=== PATIENT | female | born 1995 | race Caucasian/White ===

== ENCOUNTER 2017-08-02 11:15 | Inpatient (IN) | payer MEDICAID ==
[2017-08-02] VITALS (12 sets, daily range): BP systolic 107–127; BP diastolic 59–78; PULSE 87–119; RESP 14–20; TEMP 98–99; O2SAT 99–100
[~2017-08-02 11:15] MED LIST: DEPA500T3; TRAZ50TA4 PO; ZOLO20CO PO
[2017-08-02] MEDS ORDERED: LACTATED RINGER'S 1000 ML INJ 1,000 ML IV ONE (12:22)
--- NOTE | 2017-08-02 13:09 | HHI.HP ---
HPI Chief Complaint Scheduled Date Seen: Aug 02, 2017 Time Seen: 13:00 Travel History International Travel<30 Days: No Contact w/Intl Traveler<30Days: No Known Affected Area: No History of Present Illness HPI Patient is a 22-year-old who presents for a scheduled primary after having a fourth degree tear, with subsequent wound dehiscence and surgical revision after her first vaginal delivery. Thus, she elected for a scheduled . She denies any contractions, leakage of fluid, vaginal bleeding. She reports movement is at baseline. Review of systems is negative. History Past Medical History Narrative Medical See obstetric history. Otherwise she denies any past medical history. Obstetric History Obstetric History Patient is a 22-year-old with an EDC of 08/08/2017 who comes in for section consultation. Patient's first was complicated by a fourth degree tear with subsequent complete breakdown of her repair with inpatient management, antibiotics, and revision. Patient desires section due to chronic vaginal pain that she experienced for several years after that delivery. Patient has had no complications this . The baby was 8 lbs. 9 oz. Group B strep was recently performed by Daja Prasad. Patient had a 16 week ultrasound and a LMP that established EDC of August 08. Dr. aPrr discussed in detail the options of vaginal delivery versus primary section in this patient. Obviously she had a complication of her previous extensive pelvic and perineal trauma from vaginal that required revision of the repair as well as extended recovery period. section was recommended and after discussion of the pros and cons of versus vaginal delivery, patient was scheduled for a primary section today, August 02. Past Surgical History Narrative Surgical fourth degree tear repair with subsequent complete breakdown of her repair with inpatient management, antibiotics, and surgical revision in the OR. Family History Narrative Family History All healthy. Family History: Negative Social History Narrative Social History Patient lives at home alone, and her boyfriend visits a lot. Alcohol Use: No Tobacco Use: No Substance Abuse: No Allergies-Medications (Allergen,Severity, Reaction): Coded Allergies: No Known Allergies (Verified , 12/26/13) Home Meds Reported Medications Trazodone Hcl (Trazodone Hcl) 50 Mg Tab, 50 MG PO HS, TAB 10/05/14 Divalproex ER 500 mg (Depakote ER 500 mg) 500 Mg Mayda 10/05/14 Sertraline Hcl (Zoloft) 20 Mg/Ml Con, 20 MG PO DAILY, SOFIA 10/05/14 Review of Systems General / Constitutional: No: Fever, Chills Eyes: No: Visual changes HENT: No: Headaches Cardiovascular: No: Chest Pain or Discomfort Respiratory: No: Short of Breath Gastrointestinal: No: Nausea, Vomiting, Abdominal Pain Genitourinary: No: Dysuria Physical Exam Vital Signs Date Time Temp Pulse Resp B/P (MAP) Pulse Ox O2 Delivery O2 Flow Rate FiO2 08/02/17 12:36 93 17 127/66 (86) 08/02/17 12:36 98.0 Narrative GENERAL: Well-nourished, well-developed patient. SKIN: Warm and dry. HEAD: Normocephalic and atraumatic. EYES: No scleral icterus. No injection or drainage. ENT: No nasal drainage noted. Mucous membranes pink. Airway patent. NECK: Supple, trachea midline. No JVD. CARDIOVASCULAR: Regular rate and rhythm without murmurs, gallops, or rubs. RESPIRATORY: Breath sounds equal bilaterally. No accessory muscle use. ABDOMEN/GI: Abdomen soft, non-tender, bowel sounds present, no rebound, no guarding Gravid to 40 weeks size GENITOURINARY: Uterine Contractions: Every 3-4 minutes FHT's: Category: Category 1 Baseline: 140 Reactive: Reactive Variability: Moderate Decels: none EXTREMITIES: No cyanosis or edema. BACK: Nontender without obvious deformity. No CVA tenderness. NEUROLOGICAL: Awake and alert. Motor and sensory grossly within normal limits. Five out of 5 muscle strength in all muscle groups. Normal speech. Caprini VTE Risk Assessment Caprini VTE Risk Assessment: No/Low Risk (score <= 1) Caprini Risk Assessment Model Point Value = 1 Point Value = 2 Point Value = 3 Point Value = 5 Age 41-60 Minor surgery BMI > 25 kg/m2 Swollen legs Varicose veins or History of unexplained or recurrent spontaneous Oral contraceptives or hormone replacement Sepsis (< 1 month) Serious lung disease, including pneumonia (< 1 month) Abnormal pulmonary function Acute myocardial infarction Congestive heart failure (< 1 month) History of inflammatory bowel disease Medical patient at bed rest Age 61-74 Arthroscopic surgery Major open surgery (> 45 min) Laparoscopic surgery (> 45 min) Malignancy Confined to bed (> 72 hours) Immobilizing plaster cast Central venous access Age >= 75 History of VTE Family history of VTE Factor V Leiden Prothrombin [id number] Lupus anticoagulant Anticardiolipin antibodies Elevated serum homocysteine Heparin-induced thrombocytopenia Other congenital or acquired thrombophilia Stroke (< 1 month) Elective arthroplasty Hip, pelvis, or leg fracture Acute spinal cord injury (< 1 month) Prophylaxis Regimen Total Risk Factor Score Risk Level Prophylaxis Regimen 0-1 Low Early ambulation 2 Moderate Order ONE of the following: *Sequential Compression Device (SCD) *Heparin 5000 units SQ BID 3-4 Higher Order ONE of the following medications: *Heparin 5000 units SQ TID *Enoxaparin/Lovenox 40 mg SQ daily (WT < 150 kg, CrCl > 30 mL/min) *Enoxaparin/Lovenox 30 mg SQ daily (WT < 150 kg, CrCl > 10-29 mL/min) *Enoxaparin/Lovenox 30 mg SQ BID (WT < 150 kg, CrCl > 30 mL/min) AND/OR *Sequential Compression Device (SCD) 5 or more Highest Order ONE of the following medications: *Heparin 5000 units SQ TID (Preferred with Epidurals) *Enoxaparin/Lovenox 40 mg SQ daily (WT < 150 kg, CrCl > 30 mL/min) *Enoxaparin/Lovenox 30 mg SQ daily (WT < 150 kg, CrCl > 10-29 mL/min) *Enoxaparin/Lovenox 30 mg SQ BID (WT < 150 kg, CrCl > 30 mL/min) AND *Sequential Compression Device (SCD) Data Data Vital Signs Reviewed: Yes Orders Orders Admit To Inpatient (08/02/17 ) Code Status (08/02/17 12:22) Vital Signs (Adult) .ON ADMISSION (08/02/17 12:22) Activity Oob Ad Albina (08/02/17 12:22) Heart (08/02/17 12:22) Urinary Catheter Management MILLY.Q8H (08/02/17 12:22) ^ Preps (08/02/17 12:22) Scd / Luke / Foot Pump MILLY.QSHIFT (08/02/17 12:22) ^ Ultrasound For Locatio (08/02/17 12:22) Diet Npo (08/02/17 Lunch) Lactated Ringer's 1000 Ml Inj (Lr 1000 M (08/02/17 12:22) Lactated Ringer's 1000 Ml Inj (Lr 1000 M (08/02/17 12:52) Cefazolin 2 Gm Premix (Ancef 2 Gm Premix (08/02/17 13:30) Citric Acid-Sodium Citrate Liq (Bicitra (08/02/17 14:00) Type And Screen (08/02/17 12:22) Complete Blood Count With Diff (08/02/17 12:22) Urinalysis - C+S If Indicated (08/02/17 12:22) Drug Screen, Random Urine (08/02/17 12:22) Inpatient Certification (08/02/17 ) Specimen To Be Collected PRN (08/02/17 12:22) Specimen To Be Collected PRN (08/02/17 12:22) Assessment/Plan Problem List: (1) scheduled Assessment and Plan Patient is a 22-year-old who presents for a scheduled primary after having a fourth degree tear, with subsequent wound dehiscence and surgical revision after her first vaginal delivery. Thus, she elected for a scheduled . 1. Scheduled -Admit to inpatient -Routine labs including type and screen, CBC, UDS, UA -Nothing by mouth -Ancef 2 g IV perioperatively -LR IV -Monitor vital signs -Monitor heart rate -Anticipate uncomplicated s/d/w Dr. Appiah Discharge Planning Anticipate discharge 3 days after . Artie Mantilla MD R2 Aug 02, 2017 13:09
[2017-08-02] MEDS ORDERED: ceFAZolin 2 GM PREMIX 50 ML IV SCH (13:30)
[2017-08-02] MEDS ORDERED: CITRIC ACID-SODIUM CITRATE LIQ 30 ML UDC PO SCH (14:00)
[2017-08-02 14:09] LABS: BLOOD, URINE NEG (NEG); GLUCOSE,URINE NEG (NEG); KETONE, URINE NEG (NEG); NITRITE,URINE NEG (NEG); URINE COLOR YELLOW (YELLW/STRAW)
[2017-08-02 14:40] LABS: RBC, URINE 0 /hpf (0-3); WBC, URINE 0-2 /hpf (0-5)
[2017-08-02 14:41] LABS: BACTERIA, URINE MOD /hpf; COMMENT (UR) CULTURE INDICATED; CULTURE IF INDICATED CULTURE INDICATED; SQUAMOUS EPITHELIAL CELL URINE 0-5 /hpf (0-5)
[2017-08-02 15:04] LABS: AUTOMATED NEUTROPHIL # 10.5 TH/MM3 (1.8-7.7); BASOPHIL # 0.1 TH/MM3 (0-0.2); BASOPHIL % 0.5 % (0.0-2.0); EOSINOPHIL # 0.1 TH/MM3 (0-0.4); EOSINOPHIL % 0.5 % (0.0-4.0); HEMATOCRIT 29.4 % (35.0-46.0); HEMO FLAGS DIFF FINAL; LYMPH % 14.5 % (9.0-44.0); LYMPHOCYTE # 1.9 TH/MM3 (1.0-4.8); MEAN CELL VOLUME 76.3 FL (80.0-100.0); MEAN CORPUSCULAR HEMOGLOBIN 24.3 PG (27.0-34.0); MEAN CORPUSCULAR HGB CONC 31.9 % (32.0-36.0); MONO % 6.5 % (0.0-8.0); PLATELET COUNT 293 TH/MM3 (150-450); RED BLOOD COUNT 3.85 MIL/MM3 (4.00-5.30); RED CELL DISTRIBUTION WIDTH 15.7 % (11.6-17.2); WHITE BLOOD COUNT 13.4 TH/MM3 (4.0-11.0)
[2017-08-02] MEDS ORDERED: ACETAMINOPHEN 1000 MG/100 ML 100 ML IV ONE ×2 (15:36→17:15)
[2017-08-02] MEDS ORDERED: SODIUM CHLORIDE 0.9% FLUSH 10 ML FLUSH IV FLUSH PRN (17:15)
[2017-08-02] MEDS ORDERED: SIMETHICONE 80 MG CHEWABLE TAB PO PRN (17:15)
[2017-08-02] MEDS ORDERED: ZOLPIDEM TARTRATE 5 MG TAB PO PRN (17:15)
[2017-08-02] MEDS ORDERED: KETOROLAC TROMETHAMINE 60 MG/2 ML (IM) VIAL IM PRN (17:15)
[2017-08-02] MEDS ORDERED: CLINDAMYCIN INJ 900 MG in SODIUM CHLORIDE 0.9% INJ 100 ML IV SCH ×2 (17:15→18:00)
[2017-08-02] MEDS ORDERED: ACETAMINOPHEN 325 MG TAB PO PRN (17:15)
[2017-08-02] MEDS ORDERED: ONDANSETRON HCL 4 MG/2 ML VIAL IV PUSH PRN (17:15)
[2017-08-02] MEDS ORDERED: OXYTOCIN 30 UNITS-500ML PREMIX 500 ML IV ONE (17:15)
[2017-08-02] MEDS ORDERED: oxyCODONE/ACETAMINOPHEN 5 MG/325 MG TAB PO PRN (17:15)
[2017-08-02] MEDS ORDERED: KETOROLAC TROMETHAMINE 60 MG/2 ML (IM) VIAL IM ONE (18:00)
[2017-08-02] MEDS ORDERED: OXYTOCIN 30 UNITS-500ML PREMIX 500 ML ONE (18:04)
[2017-08-02] MEDS ORDERED: EPIDURAL-DIPHENHYDRAMINE HCL 50 MG CAP PO PRN (20:00)
[2017-08-02] MEDS ORDERED: EPIDURAL-NO SYSTEMIC NARCOTICS PRN (20:00)
[2017-08-02] MEDS ORDERED: EPIDURAL-DO NOT ADMINISTER ANTICOAGULANTS PRN (20:00)
[2017-08-02] MEDS ORDERED: EPIDURAL-NALOXONE HCL 0.4 MG/ML AMP IV PUSH PRN (20:00)
[2017-08-02] MEDS ORDERED: EPIDURAL-DIPHENHYDRAMINE HCL 50 MG/ML VIAL IV PUSH PRN (20:00)
--- NOTE | 2017-08-02 21:29 | MP ---
cc: CARMELINA APPIAH MD DATE OF SURGERY 08/02/17 PREOPERATIVE DIAGNOSIS ____ Intrauterine with a history of fourth-degree repair of peritoneal laceration with wound breakdown and extensive pelvic reconstructive peritoneal surgery. POSTOPERATIVE DIAGNOSIS 1. ____ Intrauterine with a history of fourth-degree repair of peritoneal laceration with wound breakdown and extensive pelvic reconstructive peritoneal surgery. 2. Macrosomic . PROCEDURE Low transverse section. SURGEON Michael Appiah MD SUPPORT SERVICES TECH MD Annalee ANESTHESIA Spinal. PREOPERATIVE NOTE The patient is a 21-year-old white female at 39 weeks who has a history of last vaginal delivery she a fourth-degree tear that was repaired and then had a wound breakdown. She had required long-term entry into the hospital for antibiotic care and then pelvic reconstructive surgery and peritoneal reconstruction. She is opting for section versus vaginal delivery this time to avoid possibility of tearing up and injuring that same peritoneal area and we agree with that. PROCEDURE IN DETAIL Patient was taken to the operating room, placed in supine position on the operating table. After adequate spinal anesthesia was administered, she was prepped and draped for abdominal surgery. A Pfannenstiel incision was made in lower abdomen carried to fascia sharply. The fascia dissected off the rectus muscle and rectus split in midline. Peritoneal cavity entered sharply. The incision extended superiorly and inferiorly. The bladder placed in lower incision. The visceral peritoneum reflected off the lower uterine segment and placed on bladder blade. A transverse hysterotomy was made and extended bluntly bilaterally. A male infant, weight 4530 grams delivered at 16:13, Apgars 7 and 8. There were no complications with delivery. Cord blood obtained. Placenta manually extracted. The hysterotomy closed in running layer of 0 chromic followed by imbricating suture of same. The bladder reapproximated with 2-0 Vicryl running stitch. The uterus elevated and blood suctioned from cul-de-sac and gutters. The uterus placed in the peritoneal cavity. The parieto-peritoneum closed in running layer of 2-0 Vicryl. The muscle reapproximated with stick ties of chromic. The fascia closed in a running layer of 0 Vicryl. Subcutaneous tissues was reapproximated with 3-0 plain catgut in a running suture. The skin closed with 3-0 Monocryl subcuticular stitch. Pressure dressing applied. Sponge and needle count correct times two. The patient to recovery in stable condition. MD RUFINA Ayers/ /5:42 PM /8:56 PM
[2017-08-02] MEDS ORDERED: LACTATED RINGER'S 1000 ML INJ 1,000 ML IV SCH (22:08)
[2017-08-02] MEDS: LACTATED RINGER'S 1000 ML INJ 1,000 ML IV SCH (23:24)
[2017-08-03 03:00] VITALS: BP 98/64; PULSE 85; RESP 18; TEMP 97.7; O2SAT 100
[2017-08-03] MEDS ORDERED: OXYTOCIN 30 UNITS-500ML PREMIX 500 ML IV PRN (03:15)
[2017-08-03] MEDS: oxyCODONE/ACETAMINOPHEN 5 MG/325 MG TAB PO PRN ×2 (03:57→10:58)
[2017-08-03] MEDS: IBUPROFEN 600 MG TAB PO PRN ×3 (03:57→19:30)
[2017-08-03 05:23] LABS: AUTOMATED NEUTROPHIL # 13.2 TH/MM3 (1.8-7.7); BASOPHIL % 0.3 % (0.0-2.0); EOSINOPHIL % 0.1 % (0.0-4.0); HEMATOCRIT 22.7 % (35.0-46.0); HEMO FLAGS DIFF FINAL; LYMPH % 8.5 % (9.0-44.0); LYMPHOCYTE # 1.3 TH/MM3 (1.0-4.8); MEAN CORPUSCULAR HEMOGLOBIN 24.2 PG (27.0-34.0); MEAN CORPUSCULAR HGB CONC 32.2 % (32.0-36.0); MONO % 6.3 % (0.0-8.0); NEUT % 84.8 % (16.0-70.0); PLATELET COUNT 278 TH/MM3 (150-450); RED BLOOD COUNT 3.03 MIL/MM3 (4.00-5.30); RED CELL DISTRIBUTION WIDTH 15.7 % (11.6-17.2); WHITE BLOOD COUNT 15.6 TH/MM3 (4.0-11.0)
--- NOTE | 2017-08-03 07:26 | HHI.OB ---
Subjective Post Operative Day: 1 Remarks Postop day one primary Patient doing well Out Of Bed and Ambulated, Tolerating Diet, No Bowel Movement or Flatus This Time, She Is Voiding Spontaneously Objective Vitals/I&O Vital Signs Date Time Temp Pulse Resp B/P (MAP) Pulse Ox O2 Delivery O2 Flow Rate FiO2 08/03/17 03:00 97.7 08/03/17 03:00 85 18 98/64 (75) 100 08/02/17 23:00 98.2 94 18 107/61 (76) 99 08/02/17 19:35 98.1 101 18 124/75 (91) 99 08/02/17 18:45 98.2 08/02/17 18:30 103 20 08/02/17 18:30 118/62 (80) 08/02/17 18:15 107 20 118/61 (80) 99 08/02/17 18:00 87 20 115/59 (77) 99 08/02/17 17:43 100 20 123/72 (89) 08/02/17 17:43 99 08/02/17 17:25 119 113/65 (81) 100 08/02/17 17:23 98.0 14 08/02/17 15:30 18 08/02/17 15:30 99.0 08/02/17 15:25 97 116/78 (91) 08/02/17 12:36 93 17 127/66 (86) 08/02/17 12:36 98.0 Result Diagram: 08/03/17 0450 Objective Remarks GENERAL: Well-nourished, well-developed patient. CARDIOVASCULAR: Regular rate and rhythm without murmurs, gallops, or rubs. RESPIRATORY: Breath sounds equal bilaterally. No accessory muscle use. ABDOMEN/GI: Abdomen soft, non-tender, bowel sounds present. Incision: Clean, dry and intact. Bandages dry Fundus: Firm, non-tender at umbilicus. GENITOURINARY: Light to moderate bleeding. EXTREMITIES: No cyanosis or edema, non-tender, without signs of DVT. Medications and IVs Current Medications Medications (Trade) Dose Ordered Sig/Kiran Route Start Time Stop Time Status Last Admin Lactated Ringer's 1,000 ml @ 150 mls/hr Q6H40M IV 08/02/17 12:52 08/02/17 23:24 Cefazolin Sodium/ Dextrose 50 ml @ 100 mls/hr [employer] IV 08/02/17 13:30 08/06/17 13:29 08/02/17 15:29 (Bicitra Liq) 30 ml [employer] PO 08/02/17 14:00 08/06/17 13:59 08/02/17 15:29 Lactated Ringer's 1,000 ml @ 100 mls/hr Q10H IV 08/02/17 22:08 08/03/17 18:07 Oxytocin 500 ml @ 100 mls/hr UNSCH X1 PRN IV 08/03/17 03:15 08/04/17 03:14 (NS Flush) 2 ml BID IV FLUSH 08/02/17 21:00 (NS Flush) 2 ml UNSCH PRN IV FLUSH 08/02/17 17:15 (Mylicon Chew) 80 mg QID PRN PO 08/02/17 17:15 (Tylenol) 650 mg Q6H PRN PO 08/02/17 17:15 (Motrin) 600 mg Q6H PRN PO 08/02/17 17:15 08/03/17 03:57 (Toradol Inj) 60 mg UNSCH X1 PRN IM 08/02/17 17:15 08/03/17 17:14 (Percocet 5-325 Mg) 1 tab Q4H PRN PO 08/02/17 17:15 (Percocet 5-325 Mg) 2 tab Q4H PRN PO 08/02/17 17:15 08/03/17 03:57 (Germaine-Colace) 2 tab Q12H PRN PO 08/02/17 17:15 (Ambien) 5 mg HS PRN PO 08/02/17 17:15 (M-M-R Ii Inj) 0.5 ml ONCE ONCE SQ 08/03/17 16:00 08/03/17 16:01 (Boostrix Inj) 0.5 ml ONCE ONCE IM 08/03/17 16:00 08/03/17 16:01 (Zofran Inj) 4 mg Q6H PRN IV PUSH 08/02/17 17:15 Miscellaneous Information NO SYSTEMIC NARCOTICS TO BE GIVEN FO... UNSCH PRN .XX 08/02/17 20:00 08/03/17 19:59 (Narcan Inj) 0.4 mg UNSCH PRN IV PUSH 08/02/17 20:00 08/03/17 19:59 (Benadryl Inj) 25 mg Q6H PRN IV PUSH 08/02/17 20:00 08/03/17 19:59 08/03/17 03:56 (Benadryl) 50 mg Q6H PRN PO 08/02/17 20:00 08/03/17 19:59 Miscellaneous Information ALL NURSING DEPARTMENTS UNSCH PRN .XX 08/02/17 20:00 08/03/17 19:59 Clindamycin Phosphate 900 mg/ Sodium Chloride 56 ml @ 112 mls/hr Q8H IV 08/03/17 07:30 08/03/17 15:59 Assessment/Plan Problem List: (1) scheduled Assessment and Plan Patient is a 22-year-old who presents for a scheduled primary after having a fourth degree tear, with subsequent wound dehiscence and surgical revision after her first vaginal delivery. Thus, she elected for a scheduled . 1. Scheduled Doing well postop, plan progressive postop care, advanced diet and ambulation s/d/w Dr. Appiah Discharge Planning Anticipate discharge 3 days after . Vishnu Appiah II, MD Aug 03, 2017 07:26
[2017-08-03] MEDS: CLINDAMYCIN INJ 900 MG in SODIUM CHLORIDE 0.9% INJ 50 ML IV SCH ×2 (07:53→15:22)
[2017-08-03] MEDS: SODIUM CHLORIDE 0.9% FLUSH 10 ML FLUSH IV FLUSH SCH (07:54)
[2017-08-03 08:05] VITALS: BP 113/68; PULSE 89; RESP 15; TEMP 97.9; O2SAT 100
[2017-08-03] MEDS: LACTATED RINGER'S 1000 ML INJ 1,000 ML IV SCH ×2 (08:52→15:32)
[2017-08-03 12:30] VITALS: BP 116/57; PULSE 83; RESP 14; TEMP 97.7; O2SAT 100
[2017-08-03] MEDS ORDERED: DIPHTH/TETANUS/ACEL PERTUSSIS (BOOSTER) 0.5 ML VIAL/PFS IM ONE (16:00)
[2017-08-03] MEDS ORDERED: MEASLES, MUMPS, RUBELLA VACCINE 0.5 ML VIAL SQ ONE (16:00)
[2017-08-03 20:05] VITALS: BP 116/66; PULSE 107; RESP 18; TEMP 98.2; O2SAT 99
[2017-08-04] MEDS: ACETAMINOPHEN 1000 MG/100 ML 100 ML IV PRN ×2 (08:34→15:06)
[2017-08-04] MEDS: DOCUSATE SODIUM 50 MG/SENNA 8.6 MG TAB PO PRN ×2 (08:45→21:31)
[2017-08-04] MEDS: SODIUM CHLORIDE 0.9% FLUSH 10 ML FLUSH IV FLUSH SCH (08:46)
--- NOTE | 2017-08-04 10:41 | HHI.OB ---
Subjective Post Operative Day: 2 Remarks Pt seen and examined this morning. Postoperative day # 2 AFVSS overnight. Incision nondraining. Decreased lochia. Denies dysuria. No breast tenderness. She is feeding the baby via breast. Appetite good. No nausea or vomiting. Patient has not yet had a bowel movement, but does endorse passing bowel gas. Ambulating well. Denies calf pain or shortness of breath. Otherwise, she is doing well this morning and has no other concerns. Objective Vitals/I&O Vital Signs Date Time Temp Pulse Resp B/P (MAP) Pulse Ox O2 Delivery O2 Flow Rate FiO2 08/03/17 20:05 98.2 107 18 116/66 (83) 99 08/03/17 12:30 97.7 83 14 116/57 (76) 100 Result Diagram: 08/03/17 0450 Objective Remarks GENERAL: Well-nourished, well-developed patient. CARDIOVASCULAR: Regular rate and rhythm without murmurs, gallops, or rubs. RESPIRATORY: Breath sounds equal bilaterally. No accessory muscle use. ABDOMEN/GI: Abdomen soft, non-tender, bowel sounds present. Incision: Clean, dry and intact. Bandages dry Fundus: Firm, non-tender at umbilicus. GENITOURINARY: Light to moderate bleeding. EXTREMITIES: No cyanosis or edema, non-tender, without signs of DVT. Medications and IVs Current Medications Medications (Trade) Dose Ordered Sig/Kiran Route Start Time Stop Time Status Last Admin Lactated Ringer's 1,000 ml @ 150 mls/hr Q6H40M IV 08/02/17 12:52 08/02/17 23:24 Cefazolin Sodium/ Dextrose 50 ml @ 100 mls/hr [employer] IV 08/02/17 13:30 08/06/17 13:29 08/02/17 15:29 (Bicitra Liq) 30 ml [employer] PO 08/02/17 14:00 08/06/17 13:59 08/02/17 15:29 (NS Flush) 2 ml BID IV FLUSH 08/02/17 21:00 08/04/17 08:46 (NS Flush) 2 ml UNSCH PRN IV FLUSH 08/02/17 17:15 (Mylicon Chew) 80 mg QID PRN PO 08/02/17 17:15 (Tylenol) 650 mg Q6H PRN PO 08/02/17 17:15 (Motrin) 600 mg Q6H PRN PO 08/02/17 17:15 08/03/17 19:30 (Percocet 5-325 Mg) 1 tab Q4H PRN PO 08/02/17 17:15 (Percocet 5-325 Mg) 2 tab Q4H PRN PO 08/02/17 17:15 08/03/17 10:58 (Germaine-Colace) 2 tab Q12H PRN PO 08/02/17 17:15 08/04/17 08:45 (Ambien) 5 mg HS PRN PO 08/02/17 17:15 (Zofran Inj) 4 mg Q6H PRN IV PUSH 08/02/17 17:15 Acetaminophen 100 ml @ 400 mls/hr Q6H PRN IV 08/04/17 01:00 08/04/17 08:34 Assessment/Plan Problem List: (1) scheduled Status: Acute Assessment and Plan 22 y/o female who is post-operative day # 2 s/p primary . -Continue routine care. -Percocet and Motrin PRN pain. -Encouraged OOB. Advised pelvic rest for 6 wks. patient will need follow-up appointment in 1 week for incision check -Re: ctrl, she would like Depo-Provera injection, orders placed -Anticipate discharge tomorrow, 08/05. cesar Williamson MD Discharge Planning Anticipate discharge 3 days after . Luis Miguel Nicholas MD R2 Aug 04, 2017 10:41
[2017-08-04] MEDS: LACTATED RINGER'S 1000 ML INJ 1,000 ML IV SCH ×2 (11:34→18:46)
[2017-08-04] MEDS: IBUPROFEN 600 MG TAB PO PRN ×2 (13:05→20:16)
[2017-08-05] MEDS: IBUPROFEN 600 MG TAB PO PRN (07:23)
[2017-08-05 07:26] VITALS: BP 127/73; PULSE 79; RESP 20; TEMP 97.8
[2017-08-05] MEDS: LACTATED RINGER'S 1000 ML INJ 1,000 ML IV SCH (07:32)
[2017-08-05] MEDS ORDERED: IBUP-232 PO (08:13)
[2017-08-05] MEDS ORDERED: OXYC1TAB63 PO (08:13)
--- NOTE | 2017-08-05 08:13 | HHI.DCPOC ---
Discharge Care Plan Report Symptoms to Your Doctor -Temperature above 100.5 degrees -Redness, of incision or excessive or foul smelling drainage -Unusual pain or calf pain -Increased vaginal bleeding -Painful or difficulty urinating -Feelings of extreme sadness or anxiety after 2 weeks Goals to Promote Your Health * To prevent worsening of your condition and complications * To maintain your health at the optimal level Directions to Meet Your Goals Take your medications as prescribed Follow your dietary instruction Follow activity as directed Ensure plenty of rest for recovery Drink fluids for hydration Keep your appointments as scheduled Take your immunizations and boosters as scheduled If your symptoms worsen call your PCP, if no PCP go to Urgent Care Center or Emergency Room Smoking is Dangerous to Your Health. Avoid second hand smoke Call the 24-hour crisis hotline for domestic abuse at Dung Rothman MD R1 Aug 05, 2017 08:13
--- NOTE | 2017-08-05 08:16 | HHI.OB ---
Subjective Remarks Patient is a 22-year-old delivered at 39 weeks and 1 days. Patient is day 3 after . Patient's pain is well-controlled. Patient reports eating and drinking without any nausea or vomiting. Patient reports minimal bleeding. Patient has passed gas but no bowel movements. Patient is walking without lower extremity pain or shortness of breath. Patient reports desire for contraception with Depo shot and plans to both formula and breast- feeding. Objective Vitals/I&O Vital Signs Date Time Temp Pulse Resp B/P (MAP) Pulse Ox O2 Delivery O2 Flow Rate FiO2 08/05/17 07:26 79 20 127/73 (91) 08/05/17 07:26 97.8 Result Diagram: 08/03/17 0450 Objective Remarks GENERAL: Well-nourished, well-developed patient. CARDIOVASCULAR: Regular rate and rhythm without murmurs, gallops, or rubs. RESPIRATORY: Breath sounds equal bilaterally. No accessory muscle use. ABDOMEN/GI: Abdomen soft, non-tender, bowel sounds present. Incision: Clean, dry and intact. Bandages dry Fundus: Firm, non-tender at umbilicus. GENITOURINARY: Light to moderate bleeding. EXTREMITIES: No cyanosis or edema, non-tender, without signs of DVT. Medications and IVs Current Medications Medications (Trade) Dose Ordered Sig/[facility] Route Start Time Stop Time Status Last Admin Lactated Ringer's 1,000 ml @ 150 mls/hr Q6H40M IV 08/02/17 12:52 08/02/17 23:24 Cefazolin Sodium/ Dextrose 50 ml @ 100 mls/hr [employer] IV 08/02/17 13:30 08/06/17 13:29 08/02/17 15:29 (Bicitra Liq) 30 ml [employer] PO 08/02/17 14:00 08/06/17 13:59 08/02/17 15:29 (NS Flush) 2 ml BID IV FLUSH 08/02/17 21:00 08/04/17 08:46 (NS Flush) 2 ml UNSCH PRN IV FLUSH 08/02/17 17:15 (Mylicon Chew) 80 mg QID PRN PO 08/02/17 17:15 (Tylenol) 650 mg Q6H PRN PO 08/02/17 17:15 08/04/17 21:32 (Motrin) 600 mg Q6H PRN PO 08/02/17 17:15 08/05/17 07:23 (Percocet 5-325 Mg) 1 tab Q4H PRN PO 08/02/17 17:15 (Percocet 5-325 Mg) 2 tab Q4H PRN PO 08/02/17 17:15 08/03/17 10:58 (Germaine-Colace) 2 tab Q12H PRN PO 08/02/17 17:15 08/04/17 21:31 (Ambien) 5 mg HS PRN PO 08/02/17 17:15 (Zofran Inj) 4 mg Q6H PRN IV PUSH 08/02/17 17:15 Acetaminophen 100 ml @ 400 mls/hr Q6H PRN IV 08/04/17 01:00 08/04/17 15:06 Assessment/Plan Problem List: (1) Delivered by section ICD Codes: O82 - Delivered by section Status: Acute Assessment and Plan 22 y/o female who is post-operative day # 3 s/p primary . -Continue routine care. -Percocet and Motrin PRN pain. -Encouraged OOB. Advised pelvic rest for 6 wks. patient will need follow-up appointment in 1 week for incision check -Re: ctrl, she would like Depo-Provera injection, orders placed -Anticipate discharge today, 08/05. cesar Parr MD Discharge Planning Anticipate discharge today. Dung Rothman MD R1 Aug 05, 2017 08:16
[2017-08-05] MEDS ORDERED: medroxyPROGESTERone ACETATE SUSP 150 MG/ML SYRINGE IM ONE (10:45)
== END 2017-08-05 16:36 | disposition home or self-care (01) | DRG 766 ==
LOC: H2EB 11:15 → H1EA 19:18
PROVIDERS: ADMIT Obstetrics & Gynecology Maternal & Fetal Medicine; ATTEND Obstetrics & Gynecology Maternal & Fetal Medicine
PROC: 10D00Z1 Extraction of Products of Conception, Low, Open Approach (ICD-10-PCS; principal; 2017-08-02)
DX: O75.89 Other specified complications of labor and delivery (principal); O36.63X0 Maternal care for excessive fetal growth, third trimester, not applicable or unspecified; Z87.59 Personal history of other complications of pregnancy, childbirth and the puerperium; Z37.0 Single live birth; Z3A.39 39 weeks gestation of pregnancy
CPT/HCPCS: 59025; 76937; 80307; 81001; 85025; 86850; 86900; 86901; 87086; 90715; J0131; J0690; J1050; J1200; J1885; J2590; J7120